=== PATIENT | male | born 1970 | race Caucasian/White ===

== ENCOUNTER 2022-02-01 06:01 | Day surgery (SDC) | payer BC, OTHER, SELFPAY ==
[2022-02-01] VITALS (12 sets, daily range): BP systolic 104–151; BP diastolic 62–93; PULSE 71–89; RESP 16; TEMP 36–36.6; O2SAT 92–100; BMI 31.4
[2022-02-01] MEDS: Lactated Ringers 1,000 ML 15 ML IV ×2 (06:10→08:15)
[2022-02-01] MEDS: Cefazolin 2 GM in 0.9% Normal Saline 100 ML IV (07:30)
--- NOTE | 2022-02-01 09:02 | DCINST_ITS ---
Discharge Instructions Follow Up Care Test Results: Test results from this visit will be discussed in further detail at your follow-up appointment, if applicable. Discharge Plan Admission Primary Reason for Your Visit: Right distal biceps tendon repair Attending Provider: Christiano Corado Primary Care Provider: Lonnie Ross Instructions Additional Instructions / Restrictions: Follow preprinted instructions from your surgeons office Discharge Orders/Prescriptions Prescriptions: No Action fexofenadine [Analilia] 180 mg Tablet 180 mg PO DAILY RF: 0 One Daily For Men 0.4-600 mg-mcg Tablet 1 tab PO DAILY RF: 0 omeprazole 20 mg Tablet,Delayed Release (Dr/Ec) 20 mg PO DAILY RF: 0 [place] 3 350-400 mg Capsule 1 cap PO DAILY RF: 0 Referrals / Follow Up: Christiano Corado DO [STAFF PHYSICIAN] - Within 2 Weeks Lonnie Ross MD [Primary Care Provider] - Disposition Disposition (needs filled in before D/C Order can be placed): Home, Self Care
--- NOTE | 2022-02-01 09:03 | OP.PCM_ITS ---
Report of Operation Date of Procedure: 02/01/22 Description of Surgical Findings:: Preoperative diagnosis: Right distal biceps tendon rupture Postoperative diagnosis: Right distal biceps tendon rupture Procedure: Right distal biceps tendon repair Surgeon: Christiano Corado DO Anesthesia: General LMA Anesthesiologist: Dr. Mclaughlin Complications: None apparent Drains: None Estimated blood loss: 25 cc Urinary output: None measured IV fluids: 1700 cc crystalloid Specimens: None Surgical implants: Arthrex 7 mm tenodesis screw bio composite, Arthrex biceps button Surgical indications: This is a 51-year-old male seen in the outpatient setting diagnosed with a right distal biceps tendon rupture which was sustained 01/04/2022 when he was trying to catch a pig and felt a pop in his right elbow. MRI confirmed the diagnosis. I recommended surgical intervention in the form of repair of right distal biceps tendon. The risks, benefits, alternatives to procedure were reviewed with patient at length in the outpatient setting and he agreed to proceed. Risks included but were not limited to bleeding, infection, loss of life or limb, risk of anesthesia, persistent paresthesias, neurovascular injury, persistent pain, need for additional surgery, tendon rerupture, stiffness, loss of hand or elbow function. Patient expressed understanding wish to proceed with surgery. Informed consent obtained in the office. Description of procedure: Patient was seen in preoperative holding area. Patient was identified by name, medical record number, date of . The operative extremity was marked with a surgical marker. We confirmed informed consent with the patient and all questions were answered to the patient's satisfaction. At time of his procedure, patient was brought to the operative suite and positioned supine a standard operating table. All bony prominences were well- padded. General anesthesia was induced and endotracheal tube placed. The hand table attached to the right side of the table. We spun the bed 90 degrees. A well-padded pneumatic tourniquet was applied to the right upper arm. We then prepped and draped the right upper extremity in normal, sterile orthopedic fashion. 2 g Ancef was administered prior to incision by anesthesia staff. We performed a timeout at this point confirming side, site, and operation to be performed. No concerns voiced and elected to proceed. Right upper extremity was first exsanguinated with Esmarch bandage. Tourniquet was inflated 250 mmHg remained up for approximately 50 minutes. A oblique incision was made ulnar to brachial radialis approximately 2 cm distal to the elbow volar crease. Skin and subcutaneous tissue was dissected sharply with a 15 blade scalpel. I then bluntly dissected in the subcutaneous plane and identified the lateral antebrachial cutaneous nerve. This was protected throughout the case. I then bluntly dissected down to the level of the radial tuberosity. There were several fibers left intact of the distal biceps however the majority of the tendon was retracted approximately 2 cm. I used a harris elevator to elevate the remainder of the fibers of the tendon and retreated from the wound with a Allis clamp. I debrided the end of the tendon with significant mop ends and tendinosis noted. This was debrided to a healthy tendon stump. I then performed a running, locking Krak?w stitch with a #2 FiberWire. I then selected a point in the central portion of the radial tuberosity and drilled bicortically with a vendor supplied pin for the biceps button. I then utilized a 9 mm cannulated reamer to ream the near cortex of the radial tuberosity. I passed the sutures from the tendon through the biceps button sequentially. The ends of the suture were then passed through the distal portion of the tendon to eliminate creep in the distal tendon. The button was then passed bicortically, flipped to engage the far cortex of the radius. Tendon was able to be dunked nicely into the tenodesis site. Sutures were then tied over top of the tendon. I then placed a Bio-Tenodesis screw on the radial aspect of the tendon with excellent cortical purchase to reinforce the repair. Sutures were then cut proximal to the screw. The tourniquet was then deflated. Hemostasis was excellent Dermis was reapprox imated buried 3-0 Vicryl suture and skin was closed with running subcuticular 4- 0 Monocryl with Dermabond. Sterile compression dressing and simple sling was then applied. Patient tolerated procedure well without apparent complication. Patient was transferred to PACU in stable condition. Post Operative Plan: Weightbearing: Nonweightbearing operative extremity, range of motion as tolerated Antibiotics: Ancef 2 g x 1 dose preoperatively DVT Prophylaxis: Aspirin 81 mg twice daily to start tomorrow for 2 weeks Patel: None Dressing: Okay to shower on postoperative day #2. X-Rays: None Pain Medication: Oxycodone Rx upon discharge Follow-up: 2 weeks post-operatively with me in the office. Plan to initiate physical therapy at 2 weeks for range of motion. No strengthening until 6 weeks postoperatively.
[2022-02-01] MEDS: oxyCODONE 5 MG Tablet 10 MG PO (11:38)
== END 2022-02-01 12:56 | disposition home or self-care (01) ==
LOC: SDC 06:05 → AC 06:08
PROVIDERS: PCP Family Medicine; Referring Provider Student in an Organized Health Care Education/Training Program; Visit Provider Student in an Organized Health Care Education/Training Program
PROC: (CPT 24341; principal; 2022-02-01 07:15)
DX: S46.211A Strain of muscle, fascia and tendon of other parts of biceps, right arm, initial encounter (principal); X58.XXXA Exposure to other specified factors, initial encounter; E78.00 Pure hypercholesterolemia, unspecified; K21.9 Gastro-esophageal reflux disease without esophagitis; I10 Essential (primary) hypertension; Z79.899 Other long term (current) drug therapy
CPT/HCPCS: 24342; 01710; J7120; J2405